=== PATIENT | male | born 1955 | race Caucasian/White ===

== ENCOUNTER 2020-08-02 00:58 | Inpatient (IN) | payer BC ==
[~2020-08-02] VITALS: Ht 162.6 cm; Wt 94.8 kg
--- NOTE | 2020-08-02 01:05 | NUR ---
pt bibself c/o rapid heart rate since 2299. Pt aaox4 breathing evenly and unlabored. Pt states that he took "one regular aspirin around 2329" pt skin warm dry, and intact. Pt saturating 93% RA. Placed pt on 2L O2 via NC and pt saturating at 97%. pt attached to monitor and pox. Left hand iv 18g initiated. Blood drawn and sent to lab. Pt given blanket and call light within reach. Will continue to monitor.
[2020-08-02] MEDS ORDERED: DILTIAZEM HCL 25 MG IV ONE ×2 (01:14→03:03)
[2020-08-02] MEDS ORDERED: DILTIAZEM HCL 50 MG IV IV ONE ×2 (01:30→03:00)
[2020-08-02 01:34] LABS: BASOPHILS # (AUTO) 0.1 /CMM (0.0-0.2); BASOPHILS % (AUTO) 0.9 % (0.0-2.0); EOSINOPHILS % (AUTO) 1.1 % (0.0-6.0); HEMATOCRIT 45 % (39-51); HEMOGLOBIN 15.8 g/dL (13.5-17.5); LYMPHOCYTES # (AUTO) 2.2 /CMM (0.8-4.8); MEAN CORPUSCULAR HGB CONC 35 g/dl (31.0-36.0); MEAN CORPUSCULAR VOLUME 91 fL (80-96); MONOCYTES # (AUTO) 0.8 /CMM (0.1-1.30); MONOCYTES % (AUTO) 8.1 % (2.0-12.0); NEUTROPHILS # (AUTO) 7.1 /CMM (1.8-8.9); NEUTROPHILS % (AUTO) 68.9 % (43.0-81.0); PLATELET COUNT (AUTO) 167 /CMM (150-450); RED BLOOD CELL COUNT(AUTO) 5.02 MIL/uL (4.5-6.0); WHITE BLOOD COUNT (AUTO) 10.3 K/uL (4.3-11.0)
[2020-08-02 01:40] LABS: CALCIUM, SERUM 8.9 mg/dL (8.5-10.1); CARBON DIOXIDE 27 mmol/L (21-32); CHLORIDE 98 mmol/L (98-107); CREATININE 1.3 mg/dL (0.6-1.3); GLUCOSE 138 mg/dL (74-106); SODIUM SERUM 134 mmol/L (136-145); UREA NITROGEN, BLOOD 22 mg/dL (7-18)
--- NOTE | 2020-08-02 01:40 | NUR ---
xray at bedside
[2020-08-02] MEDS ORDERED: ATEN50TA PO (01:41)
[2020-08-02] MEDS ORDERED: DOLU50TA PO (01:41)
[2020-08-02] MEDS ORDERED: ATOR40TA PO (01:41)
[2020-08-02] MEDS ORDERED: EMTR1TAB17 PO (01:41)
[2020-08-02] MEDS ORDERED: DARU1TAB PO (01:41)
[2020-08-02] MEDS ORDERED: LISI10TA29 PO (01:41)
[2020-08-02] MEDS ORDERED: LISI20TA30 PO (01:41)
[2020-08-02] MEDS ORDERED: HYDR25TA4 PO (01:41)
[2020-08-02 01:54] LABS: B-TYPE NATRIURETIC PEPTIDE 793 PG/ML (0-125)
--- NOTE | 2020-08-02 02:18 | NUR ---
CALL FROM LAB. RAPID COVID NEGATIVE.
[2020-08-02] MEDS ORDERED: IV NS 0.9% 500 ML BAG IV ONE ×2 (03:00→06:00)
--- NOTE | 2020-08-02 03:24 | NUR ---
GAVE REPORT TO RISA LE FOR KYLEE.
--- NOTE | 2020-08-02 07:25 | NUR ---
gave report to RISA Rosario for billie
--- NOTE | 2020-08-02 08:01 | NUR ---
Transfered the patient to [facility] following ACLS protocol. The patient is stable condition, report given to nurse Ariza.
[2020-08-02] MEDS ORDERED: AMIODARONE 450 MG in IV D5W 250 ML IV PRN ×2 (08:30→09:00)
[2020-08-02] MEDS ORDERED: AMIODARONE 150 MG in IV D5W 100 ML IV ONE (08:30)
[2020-08-02] MEDS ORDERED: FUROSEMIDE 40 MG/4 ML VIAL IV SCH (08:30)
[2020-08-02 08:39] LABS: MAGNESIUM 1.9 mg/dL (1.8-2.4); PHOSPHORUS 3.9 mg/dL (2.5-4.9)
[2020-08-02 08:51] LABS: THYROID STIMULATING HORMONE 1.657 uIU/mL (0.358-3.74)
[2020-08-02] MEDS ORDERED: MAGNESIUM HYDROXIDE 30 ML UDC PO PRN (10:00)
[2020-08-02] MEDS ORDERED: ONDANSETRON HCL/PF 4 MG/2 ML VIAL IVP PRN (10:00)
[2020-08-02] MEDS ORDERED: MAG HYDROX/AL HYDROX/SIMETH 30 ML UDC PO PRN (10:00)
[2020-08-02] MEDS ORDERED: Z GUARD REMEDY 2 OZ OINT TP PRN (10:00)
[2020-08-02] MEDS ORDERED: HYDROCODONE/APAP 5/325MG TABLET PO PRN (10:00)
[2020-08-02] MEDS ORDERED: ACETAMINOPHEN 325 MG TABLET PO PRN (10:00)
[2020-08-02] MEDS: POTASSIUM CHLORIDE 20 MEQ TAB.PRT.SR PO SCH ×5 (11:03→14:53)
[2020-08-02] MEDS: APIXABAN 5 MG TABLET PO SCH ×2 (11:03→18:19)
[2020-08-02] MEDS: AMIODARONE HCL 200 MG TABLET PO SCH ×2 (12:05→13:00)
--- NOTE | 2020-08-02 13:39 | NUR ---
RN NOTE THREE DOSES OF POTASSIUM 20 MEQ GIVEN PER ORDER. DUPLICATE ORDER DOSE HELD AT 1300.
--- NOTE | 2020-08-02 13:43 | NUR ---
RN NOTE 2 OF 3 DAILY DOSES OF AMIODARONE 200MG GIVEN PER ORDER. DUPLICATE ORDER DOSE HELD AT 1300.
[2020-08-02 20:00] VITALS: BP 129/78
--- NOTE | 2020-08-02 20:55 | NUR ---
RN NOTES PT RECEIVED ALERT X4 IN BED NO PIAN OR DISCOMFORT NOTED OR REPORTED AT THIS TIME. NO RESPIRATORY DISTRESS PT ON ROOM AIR TOLERATING WELL. IV ACCESS ON THE lL HAND 18G NO SWELLING OR PAIN AT SITE. CALL LIGHT WITHIN REACH ALL NURSING NEEDS MET AT THIS TIME. SAFETY PRECAUTIONS FOLLOWED. WILL CONTINUE TO MONITOR.
[2020-08-02] MEDS ORDERED: ZOLPIDEM TARTRATE 5 MG TABLET PO ONE (21:00)
[2020-08-02] MEDS ORDERED: ATORVASTATIN 40 MG TABLET PO SCH (22:00)
[2020-08-03] VITALS: BP 123/62
[2020-08-03 04:00] VITALS: BP 132/82
[2020-08-03 05:57] LABS: BASOPHILS % (AUTO) 0.8 % (0.0-2.0); EOSINOPHILS % (AUTO) 1.8 % (0.0-6.0); HEMATOCRIT 43 % (39-51); HEMOGLOBIN 14.6 g/dL (13.5-17.5); LYMPHOCYTES # (AUTO) 1.9 /CMM (0.8-4.8); MEAN CORPUSCULAR HGB CONC 34 g/dl (31.0-36.0); MEAN CORPUSCULAR VOLUME 92 fL (80-96); MONOCYTES # (AUTO) 0.5 /CMM (0.1-1.30); MONOCYTES % (AUTO) 8.8 % (2.0-12.0); NEUTROPHILS # (AUTO) 3.5 /CMM (1.8-8.9); NEUTROPHILS % (AUTO) 57.6 % (43.0-81.0); PLATELET COUNT (AUTO) 169 /CMM (150-450); RED BLOOD CELL COUNT(AUTO) 4.68 MIL/uL (4.5-6.0); WHITE BLOOD COUNT (AUTO) 6.1 K/uL (4.3-11.0)
--- NOTE | 2020-08-03 06:30 | NUR ---
RN NOTES PT ALERT X4 IN BED NO PIAN OR DISCOMFORT NOTED OR REPORTED AT THIS TIME. NO RESPIRATORY DISTRESS PT ON ROOM AIR TOLERATING WELL. IV ACCESS ON THE lL HAND 18G NO SWELLING OR PAIN AT SITE. CALL LIGHT WITHIN REACH ALL NURSING NEEDS MET AT THIS TIME. SAFETY PRECAUTIONS FOLLOWED. WILL CONTINUE ENDORSE CARE TO DAY SHIFT
[2020-08-03 06:33] LABS: ALANINE AMINOTRANSFERASE 24 U/L (12-78); ALBUMIN 3.1 g/dL (3.4-5.0); ALKALINE PHOSPHATASE 49 U/L (46-116); ASPARTATE AMINOTRANSFERASE 16 U/L (15-37); BILIRUBIN,TOTAL 0.6 mg/dL (0.2-1.0); CALCIUM, SERUM 8.9 mg/dL (8.5-10.1); CARBON DIOXIDE 28 mmol/L (21-32); CHLORIDE 103 mmol/L (98-107); CREATININE 0.9 mg/dL (0.6-1.3); GLUCOSE 95 mg/dL (74-106); MAGNESIUM 1.9 mg/dL (1.8-2.4); PHOSPHORUS 3.2 mg/dL (2.5-4.9); POTASSIUM 3.5 mmol/L (3.5-5.1); SODIUM SERUM 139 mmol/L (136-145); TOTAL PROTEIN, SERUM 7.1 g/dL (6.4-8.2); UREA NITROGEN, BLOOD 13 mg/dL (7-18)
[2020-08-03 07:48] VITALS: BP 135/84
[2020-08-03] MEDS ORDERED: Darunavir/Cobicistat (Prezcobix 800 mg-150 mg Tablet PO SCH (09:00)
[2020-08-03] MEDS ORDERED: DRONEDARONE HYDROCHLORIDE 400 MG TABLET PO SCH (09:00)
[2020-08-03] MEDS ORDERED: Emtricitabine/Tenofov Alafenam (Descovy 200-25 mg Tablet PO SCH (09:00)
[2020-08-03] MEDS ORDERED: APIXABAN 5 MG TABLET PO SCH (09:00)
[2020-08-03] MEDS: APIXABAN 5 MG TABLET PO SCH (09:35)
[2020-08-03] MEDS ORDERED: APIX5TAB PO (11:24)
[2020-08-03] MEDS ORDERED: DRON400T2 PO (11:24)
--- NOTE | 2020-08-03 12:08 | NUR ---
RN NOTE PATIENT DISCHARGE EDUCATION GIVEN TO PATIENT. PATIENT VERBALIZED HIS UNDERSTANDING OF THE DISCHARGE INSTRUCTION. ALL PATIENT'S BELONGINGS RETURNED TO THE PATIENT. PATIENT SIGNED DISCHARGED INSTRUCTIONS AND PATIENT BELONGINGS FORM. PATIENT DISCHARGED HOME IN STABLE CONDITION. END RN NOTE. BN
== END 2020-08-03 12:00 | disposition home or self-care (01) | DRG 309 ==
LOC: ER 01:01 → TELE 03:09 → MED 08-03 09:46
PROVIDERS: ADMIT Internal Medicine; ATTEND Internal Medicine
DX: I48.91 Unspecified atrial fibrillation (principal); I50.32 Chronic diastolic (congestive) heart failure; E78.5 Hyperlipidemia, unspecified; E87.6 Hypokalemia; F17.210 Nicotine dependence, cigarettes, uncomplicated; Z20.822 Contact with and (suspected) exposure to COVID-19; I11.0 Hypertensive heart disease with heart failure; Z79.01 Long term (current) use of anticoagulants; Z90.49 Acquired absence of other specified parts of digestive tract; E66.9 Obesity, unspecified; Z68.35 Body mass index [BMI] 35.0-35.9, adult
CPT/HCPCS: 36415; 71045-TC; 80048-TC; 80053-TC; 80061-TC; 83735-TC; 83880; 84100-TC; 84439-TC; 84443-TC; 84484-TC; 85025-TC; 87081-TC; 93307-TC; C9803; G0378; J0282; J1940; J3490; J7040; J7060